=== PATIENT | male | born 1950 | race Caucasian/White ===

== ENCOUNTER 2016-12-25 12:58 | Emergency (ER) | payer MEDICARE, MEDICAID ==
[2016-06-15 11:05] VITALS: BMI 27.2
[~2016-12-25 12:58] MED LIST: BUPROPION HCL100 M1 PO; DILAUDID2 MG PO; FLOMAX0.4 MG PO; GLUCOPHAGE500 MG PO; HYDROCODONE-APA1 TAB PO; LANTUS INSULIN10 ML SC; LEXAPRO10 MG PO; MOBIC7.5 MG PO; MYSOLINE250 MG PO; NEURONTIN 300300 MG PO; POTASSIUM CL ER 10 M; PRINIVIL20 MG PO; PROAIR HFA8.5 GM INH; VESICARE10 MG PO
[2016-12-25 14:55] LABS: BASOPHILS 0.1 % (0.0-2.0); EOSINOPHILS 3.8 % (0-7); HEMATOCRIT 39.1 % (42.0-54.0); HEMOGLOBIN 13.5 g/dL (13.5-17.5); IMMATURE GRANULOCYTES 0.1 % (0-5); LYMPHOCYTES 13.6 % (15-50); MCH 32.5 pg (26.0-34.0); MCHC 34.5 g/dL (31.0-37.0); MEAN PLATELET VOLUME 9.8 fL (7.4-10.4); MONOCYTES 7.2 % (2-11); NEUTROPHILS 75.2 % (40-80); PLATELET COUNT 203 10x3/uL (130-400); RBC 4.16 10x6/uL (4.20-6.10); RDW 13.2 % (11.5-14.5); WBC 6.8 10x3/uL (4.8-10.8)
[2016-12-25 15:13] LABS: ALBUMIN 3.8 g/dL (3.4-5.0); ANION GAP 15.2 mmol/L (8-16); BILIRUBIN - TOTAL 0.42 mg/dL (0.2-1.3); C-REACTIVE PROTEIN 5.2 mg/dL (0.0-0.9); CALCIUM 9.3 mg/dL (8.5-10.1); CARBON DIOXIDE 24.5 mmol/L (21.0-32.0); CREATININE - SERUM 1.1 mg/dL (0.6-1.3); POTASSIUM - SERUM 4.7 mmol/L (3.5-5.1); PROTEIN - SERUM 7.4 g/dL (6.4-8.2)
== END 2016-12-25 15:50 | disposition home or self-care (01) ==
LOC: D.ER 12:58
PROVIDERS: Family Medicine
DX: S32.029A Unspecified fracture of second lumbar vertebra, initial encounter for closed fracture (principal); W19.XXXA Unspecified fall, initial encounter; Y93.89 Activity, other specified; Y92.89 Other specified places as the place of occurrence of the external cause; E11.9 Type 2 diabetes mellitus without complications; I10 Essential (primary) hypertension

== ENCOUNTER 2019-07-14 14:11 | Emergency (ER) | payer MEDICARE, MEDICAID ==
[~2019-07-14] VITALS: Ht 185.4 cm; Wt 78.6 kg
[2019-07-14 14:22] VITALS: Ht 185.4 cm; Wt 78.6 kg
[2019-07-14] MEDS ORDERED: NYSTATIN OINTME15 GM TOPICAL (15:28)
[2019-07-14] MEDS ORDERED: OMNICEF300 MG PO (15:28)
[2019-07-14 15:42] VITALS: BP 112/50
== END 2019-07-14 16:28 | disposition home or self-care (01) ==
LOC: D.ER 14:11
DX: L03.317 Cellulitis of buttock (principal)